=== PATIENT | female | born 1990 | race Caucasian/White ===

== ENCOUNTER 2020-03-14 11:49 | Inpatient (IN) | payer OTHER ==
--- NOTE | 2020-03-14 16:52 | PD.OB.PROG ---
Past Medical History - Primary Care Physician Documenting Provider Type: Laborist - Admission Chief Complaint: cervical funneling at 26 weeks; no measurable ceevix by TVS/ transabdominal sonogram History Source: Patient Limitations to Obtaining History: No Limitations - Nursing Documentation Maternal Triage Index: Maternal Triage Index ( Priority 3, Prompt MFTI) Nursing Documentation Reviewed: Yes - Past Medical History Hepatobiliary: Cholelithiasis (h/o gallstones followed surgical removal) ...: 1 ...Para: 0 ...Term: 0 ...: 0 ...Spon : 0 ...Induced : 0 ...Living Children: 0 ...EDC by Sono: 06/20/20 - Past Surgical History Past Surgical History: Yes: Bariatric Surgery Physical Exam - Obstetrical Vital Signs: Vital Signs Temperature 98.4 F 03/14/20 12:45 Pulse Rate 72 03/14/20 12:45 Respiratory Rate 17 03/14/20 12:45 Blood Pressure 101/51 L 03/14/20 12:45 O2 Sat by Pulse Oximetry (%) Problem List - Problems (1) Cervical funneling affecting Code(s): O34.30 - MATERNAL CARE FOR CERVICAL INCOMPETENCE, UNSP TRIMESTER (2) 26 weeks gestation of Code(s): Z3A.26 - 26 WEEKS GESTATION OF (3) GDM (gestational diabetes mellitus) Code(s): O24.419 - GESTATIONAL DIABETES MELLITUS IN , UNSP CONTROL Assessment/Plan cervical funnelling at 26 weeks; obesity, s/p sleeve procedure discussed with Dr Brown ,the primary OB who requeted transfer to [facility] transfer arranged to [facility] and explained to patient who is on agreement
[2020-03-14 17:04] VITALS: BP 116/72; PULSE 79; TEMP 99.2; BMI 38.7
== END 2020-03-14 18:50 | disposition short-term general hospital (02) | DRG 566 ==
LOC: JDEL 11:49 → JLDR 15:30
PROVIDERS: ADMIT Family Medicine; ATTEND Family Medicine
DX: O34.32 Maternal care for cervical incompetence, second trimester (principal); O99.212 Obesity complicating pregnancy, second trimester; O24.419 Gestational diabetes mellitus in pregnancy, unspecified control; Z3A.26 26 weeks gestation of pregnancy